=== PATIENT | female | born 1980 | race Asian ===

== ENCOUNTER 2019-05-19 11:08 | Emergency (ER) | payer OTHER ==
[2019-05-19 11:26] VITALS: BP 108/73
--- NOTE | 2019-05-19 11:37 | UC ---
Hip/Pelvis Pain - HPI Summary HPI Summary: Patient is a 38yo female presenting with R hip pain after falling on the ice while ice skating yesterday. Patient states it was "uncomfortable at first" but that she was able to keep skating for 20 minutes. Patient states she went home and the pain gradually worsened. She states she woke up this morning he went to take the dog out but the pain became sharp and she was unable to walk without pain. Denies pain at rest. Denies pain with standing. Notes pain is only present when walking. Denies swelling and bruising. Notes decreased range of motion of R hip due to pain. Denies radiating pain. Denies numbness and tingling. Denies back pain. States she took ibuprofen with little relief. - History Of Current Complaint Chief Complaint: UCLowerExtremity Stated Complaint: LEG PAIN Hx Obtained From: Patient Hx Last Menstrual Period: 05/07/19 Onset/Duration: Gradual Onset Severity Currently: Moderate Pain Intensity: 7 Pain Scale Used: 0-10 Numeric - Allergies/Home Medications Allergies/Adverse Reactions: Allergies Allergy/AdvReac Type Severity Reaction Status Date / Time No Known Allergies Allergy Verified 05/19/19 11:17 Home Medications: Home Medications Acetaminophen [Acetaminophen Extra Strength] 1,000 mg PO ONCE 05/19/19 [History Confirmed 05/19/19] PMH/Surg Hx/FS Hx/Imm Hx Previously Healthy: Yes - Surgical History Surgical History: Yes Surgery Procedure, Year, and Place: right arm surgery repair after broken bone. L fallopian tube removal after ectopic 2013 - Family History Known Family History: Positive: Unknown, Non-Contributory - Social History Occupation: Employed Part-time Alcohol Use: Occasionally Substance Use Type: None Smoking Status (MU): Never Smoked Tobacco - Immunization History Most Recent Influenza Vaccination: 04/2015 Most Recent Tetanus Shot: WITH LAST PREG Most Recent Pneumonia Vaccination: NA Review of Systems All Other Systems Reviewed And Are Negative: No Constitutional: Positive: Negative Skin: Positive: Negative. Negative: Bruising Respiratory: Positive: Negative Cardiovascular: Positive: Negative Gastrointestinal: Positive: Negative Neurovascular: Positive: Negative. Negative: Decreased Sensation Musculoskeletal: Positive: Arthralgia - R hip. Negative: Decreased ROM, Edema Neurological: Positive: Negative. Negative: Paresthesia, Numbness Physical Exam Triage Information Reviewed: Yes Appearance: Well-Appearing, No Pain Distress, Well-Nourished Vital Signs: Initial Vital Signs Temp 98.6 F 05/19/19 11:18 Pulse 83 05/19/19 11:18 Resp 18 05/19/19 11:18 BP 108/73 05/19/19 11:18 Pulse Ox 100 05/19/19 11:18 Vital Signs Reviewed: Yes Eyes: Positive: Conjunctiva Clear ENT: Positive: Hearing grossly normal Neck: Positive: Supple Respiratory Exam: Normal Respiratory: Positive: Lungs clear, Normal breath sounds, No respiratory distress Cardiovascular Exam: Normal Cardiovascular: Positive: RRR, Pulses Normal - normal pedal pulses b/l Musculoskeletal: Positive: Strength Intact, No Edema, ROM Limited @ - R hip flexion and extension d/t pain, Other: - pain with ambulation. no tenderness to palpation of R hip or lumbar spine Neurological Exam: Other - sensation grossly intact Neurological: Positive: Alert Psychological: Positive: Age Appropriate Behavior Skin Exam: Normal - no erythema or ecchymosis Diagnostics - Radiology R hip Radiology Interpretation Completed By: Radiologist Summary of Radiographic Findings: FINDINGS: The soft tissues are unremarkable. The bone mineralization is within normal limits. No fracture is identified. Anatomic alignment is maintained. The joint spaces are preserved. IMPRESSION: NO FRACTURE IDENTIFIED. Hip Injury Course/Dx - Course Course Of Treatment: Discussed negative x-rays with patient. Instructed to continue with symptomatic treatment and follow up with PCP or sports medicine if pain persists. Instructed to go to ED if pain worsens. Patient voiced understanding and agreed with treatment plan. - Differential Dx/Diagnosis Provider Diagnosis: Acute right hip pain Discharge ED - Sign-Out/Discharge Documenting (check all that apply): Patient Departure All imaging exams completed and their final reports reviewed: Yes - Discharge Plan Condition: Stable Disposition: HOME Patient Education Materials: Hip Pain (ED) Referrals: [facility] [Outside] [facility] [Outside] [facility] [Outside] Additional Instructions: As discussed, the xrays of the hip did not show any fractures. Rest, ice and/or heat to help relieve pain. You may also take over the counter pain medications as directed for relief of pain. If pain does not resolve, follow up with your PCP or orthopedics as listed below. Go to the emergency room if pain worsens, the leg/foot becomes cold and numb, or you are unable to bear weight. - Billing Disposition and Condition Condition: STABLE Disposition: Home - Attestation Statements Provider Attestation: I was available for consult. This patient was seen by the JAMES. The patient was not presented to, seen by, or examined by me. -Venkata
== END 2019-05-19 12:50 | disposition home or self-care (01) ==
LOC: UCEAST 11:08
DX: M25.551 Pain in right hip (principal)
CPT/HCPCS: 99211; G0463